=== PATIENT | male | born 1965 | race African-American/Black ===

== ENCOUNTER 2018-03-25 11:42 | Inpatient (IN) ==
[2018-03-25 14:41] LABS: Basophils % 0.3 % (0.0-0.8); Eosinophils # 0.2 10*3/uL (0.0-0.87); Eosinophils % 2.8 % (0.00-10.9); Hematocrit 32.4 VOL% (42.0-52.0); Hemoglobin 9.9 GM/DL (14.0-18.0); Immature Granulocytes % 0.6 %; Immature Granulocytes Absolute 0.04 #; Lymphocytes # 0.8 10*3/uL (1.4-4.0); Lymphocytes % 12.9 % (21.2-54.2); Mean Corpuscular HGB Conc 30.6 GM/DL (32-36); Mean Corpuscular Hemoglobin 32 PG (27-34); Mean Corpuscular Volume 104.9 FL (87-102); Mean Platelet Volume 11.7 FL (9.6-12.0); Monocytes # 0.4 10*3/uL (0.11-0.8); Monocytes % 5.9 % (1.7-12.7); Neutrophils % 77.5 % (38.7-73.9); Platelet Count 198 T/CUMM (130-400); Red Blood Count 3.09 MC/CUMM (3.8-5.5); Red Cell Distribution Width 14.8 % (9.3-17.3); White Blood Count 6.4 T/CUMM (4-12)
[2018-03-25 14:53] LABS: INR 1.2; PT Patient Result 12.7 SECS; Partial Thromboplastin Time 29.9 SECS (0-40)
[2018-03-25 15:04] LABS: CKMB % 5.6 %; Troponin I 0.031 NG/ML (0.00-0.045)
[2018-03-25 15:15] LABS: Albumin 3.3 G/DL (3.4-5.0); Bilirubin,Total 0.4 MG/DL (0.2-1.0); Osmolality,Calculated 334.3 MOS/KG (273-304); Total Protein 6.8 G/DL (6.4-8.3)
[2018-03-25 15:24] LABS: Potassium 5.9 MMOL/L (3.5-5.1)
[2018-03-25] MEDS ORDERED: ACETAMINOPHEN 325 MG TABLET PO PRN (15:49)
[2018-03-25] MEDS ORDERED: ONDANSETRON 4 MG/2 ML VIAL IV PRN (15:49)
[2018-03-25] MEDS ORDERED: traZODone 50 MG TABLET PO PRN (15:49)
[2018-03-25] MEDS ORDERED: SODIUM POLYSTYRENE SULFATE 15 GM/60 ML BOTTLE PO ONE (16:25)
[2018-03-25] MEDS ORDERED: CALCIUM GLUCONATE 1,000 MG in SODIUM CHLORIDE 0.9% 100 ML IV ONE (16:28)
[2018-03-25] MEDS ORDERED: INSULIN REGULAR 100 UNIT/ML IV STA (16:29)
[2018-03-25] MEDS ORDERED: GLUCAGON 1 MG VIAL IM PRN ×2 (16:30→16:33)
[2018-03-25] MEDS ORDERED: DEXTROSE 50% 25 GM/50 ML VIAL IV ONE (16:30)
[2018-03-25] MEDS ORDERED: DEXTROSE 50% 25 GM/50 ML VIAL IV PRN ×2 (16:30→16:33)
[2018-03-25 17:36] LABS: INR 1.2; PT Patient Result 12.6 SECS
[2018-03-25 17:52] LABS: Risk Ratio 2.9; Thyroid Stimulating Hormone 4.44 uIU/ml (0.358-3.74); VLDL CHOLESTEROL 17.4 MG/DL
[2018-03-25] MEDS: INSULIN REGULAR 100 UNIT/ML SUBCUT SCH (18:06)
[2018-03-25] MEDS: WARFARIN 4 MG TABLET PO SCH (18:47)
[2018-03-25] MEDS: CALCIUM ACETATE 667 MG CAPSULE PO SCH (18:47)
[2018-03-25] MEDS: HEPARIN 5,000 UNIT/1 ML VIAL SUBCUT SCH (18:48)
[2018-03-25 19:03] LABS: Hepatitis A Ab IgM Quant 0.15 Index; Hepatitis A Ab IgM Result Negative (Negative); Hepatitis B Core IgM Quant < 0.05 Index; Hepatitis B Core IgM Result Negative (Negative); Hepatitis B Surface Ag Quant 0.11 Index; Hepatitis B Surface Ag Result Negative (Negative); Hepatitis C Virus Ab Quant 0.18 Index; Hepatitis C Virus Ab Result Negative (Negative)
[2018-03-25] MEDS: ALBUTEROL/IPRATROPIUM 3 ML NEB RESP TX SCH (19:40)
[2018-03-25] MEDS: PANTOPRAZOLE 40 MG TABLET PO SCH (20:49)
[2018-03-25] MEDS: CARVEDILOL 6.25 MG TABLET PO SCH (20:49)
[2018-03-25] MEDS ORDERED: CARVEDILOL 3.125 MG TABLET PO SCH (21:00)
[2018-03-26] MEDS: DOCUSATE SODIUM 100 MG CAPSULE PO SCH ×3 (00:52→20:55)
[2018-03-26] MEDS: INSULIN REGULAR 100 UNIT/ML SUBCUT SCH ×5 (00:53→20:55)
[2018-03-26] MEDS: ALBUTEROL/IPRATROPIUM 3 ML NEB RESP TX SCH ×4 (01:21→19:29)
[2018-03-26] MEDS: hydrALAZINE 20 MG/1 ML VIAL IV PRN ×2 (01:33→11:11)
[2018-03-26] MEDS: HEPARIN 5,000 UNIT/1 ML VIAL SUBCUT SCH ×3 (01:33→17:31)
[2018-03-26 03:39] LABS: Basophils % 0.2 % (0.0-0.8); Eosinophils # 0.2 10*3/uL (0.0-0.87); Eosinophils % 2.4 % (0.00-10.9); Hematocrit 31.5 VOL% (42.0-52.0); Hemoglobin 9.9 GM/DL (14.0-18.0); Immature Granulocytes % 0.6 %; Immature Granulocytes Absolute 0.04 #; Lymphocytes # 0.7 10*3/uL (1.4-4.0); Lymphocytes % 10.5 % (21.2-54.2); Mean Corpuscular HGB Conc 31.4 GM/DL (32-36); Mean Corpuscular Hemoglobin 32 PG (27-34); Mean Corpuscular Volume 101.9 FL (87-102); Monocytes # 0.3 10*3/uL (0.11-0.8); Monocytes % 4.8 % (1.7-12.7); Neutrophils % 81.5 % (38.7-73.9); Platelet Count 185 T/CUMM (130-400); Red Blood Count 3.09 MC/CUMM (3.8-5.5); Red Cell Distribution Width 14.5 % (9.3-17.3); White Blood Count 6.2 T/CUMM (4-12)
[2018-03-26 03:47] LABS: INR 1.3; PT Patient Result 13.1 SECS
[2018-03-26 04:04] LABS: Alanine Aminotransferase 14 U/L (16-61); Albumin 3.3 G/DL (3.4-5.0); Alkaline Phosphatase 100 U/L (45-117); Aspartate Amino Transferase 10 U/L (0-37); Bilirubin,Total < 0.39 MG/DL (0.2-1.0); Blood Urea Nitrogen 161 MG/DL (7-18); Glucose 93 MG/DL (74-106); Osmolality,Calculated 335.1 MOS/KG (273-304); Potassium 5.1 MMOL/L (3.5-5.1); Sodium 142 MMOL/L (136-145)
[2018-03-26] MEDS ORDERED: LEVOTHYROXINE 100 MCG TABLET PO SCH (07:00)
[2018-03-26] MEDS: CITALOPRAM 40 MG TABLET PO SCH (08:03)
[2018-03-26] MEDS: PANTOPRAZOLE 40 MG TABLET PO SCH ×2 (08:03→20:55)
[2018-03-26] MEDS: CARVEDILOL 6.25 MG TABLET PO SCH ×2 (08:03→18:37)
[2018-03-26] MEDS: ASPIRIN CHEW 81 MG TABLET PO SCH (08:04)
[2018-03-26] MEDS: FUROSEMIDE 40 MG TABLET PO SCH ×2 (08:04→15:20)
[2018-03-26] MEDS: ATORVASTATIN 20 MG TABLET PO SCH (08:04)
[2018-03-26] MEDS: CALCIUM ACETATE 667 MG CAPSULE PO SCH ×3 (08:04→17:32)
[2018-03-26] MEDS ORDERED: FAMOTIDINE 20 MG TABLET PO SCH (09:00)
[2018-03-26] MEDS ORDERED: PANTOPRAZOLE 40 MG TABLET PO SCH (09:00)
[2018-03-26] MEDS ORDERED: LEVOTHYROXINE 112 MCG TABLET PO SCH (10:59)
[2018-03-26] MEDS: WARFARIN 4 MG TABLET PO SCH (17:32)
[2018-03-27] MEDS: ALBUTEROL/IPRATROPIUM 3 ML NEB RESP TX SCH ×3 (00:07→13:28)
[2018-03-27] MEDS: INSULIN REGULAR 100 UNIT/ML SUBCUT SCH ×2 (07:30→11:24)
[2018-03-27] MEDS: CARVEDILOL 6.25 MG TABLET PO SCH (08:45)
[2018-03-27] MEDS: FUROSEMIDE 40 MG TABLET PO SCH (08:45)
[2018-03-27] MEDS: CALCIUM ACETATE 667 MG CAPSULE PO SCH ×2 (08:45→13:21)
[2018-03-27] MEDS: PANTOPRAZOLE 40 MG TABLET PO SCH (08:46)
[2018-03-27] MEDS: CITALOPRAM 40 MG TABLET PO SCH (08:46)
[2018-03-27] MEDS: DOCUSATE SODIUM 100 MG CAPSULE PO SCH (08:46)
[2018-03-27] MEDS: ASPIRIN CHEW 81 MG TABLET PO SCH (08:46)
[2018-03-27] MEDS: ATORVASTATIN 20 MG TABLET PO SCH (08:53)
[2018-03-27] MEDS ORDERED: NYSTATIN POWDER 15 GM BOTTLE TOP SCH (09:00)
[2018-03-27 14:33] VITALS: BP 121/84
== END 2018-03-27 14:55 | disposition home or self-care (01) | DRG 640 ==
LOC: N.ED 11:42 → N.EDINP 11:42 → SUATTDRO 15:49 → N.CC 16:59 → N.5E 03-26 16:25

== ENCOUNTER 2018-03-31 15:57 | Inpatient (IN) ==
[2018-03-31] MEDS ORDERED: EPINEPHrine 1 MG/10 ML SYRINGE IV ONE ×2 (16:02→16:30)
[2018-03-31] MEDS ORDERED: INSULIN REGULAR 100 UNIT/ML ONE (16:03)
[2018-03-31] MEDS ORDERED: SODIUM BICARBONATE 50 MEQ/50 ML VIAL IV ONE (16:04)
[2018-03-31] MEDS ORDERED: INSULIN REGULAR 100 UNIT/ML IV ONE (16:04)
[2018-03-31 16:27] LABS: ABG Base Excess -19.1 MMOL/L (-2.5-2.5); ABG HCO3 10.5 MMOL/L (20-26); ABG Oxygen Saturation 98.5 % (95-100); ABG PCO2 90.5 MM HG (35-48); ABG TCO2 16.9 MMOL/L (23-27)
[2018-03-31] MEDS ORDERED: NOREPINEPHRINE 4 MG/4 ML VIAL IV ONE ×2 (16:31→16:33)
[2018-03-31 16:36] LABS: Basophils % 0.3 % (0.0-0.8); Eosinophils % 0.3 % (0.00-10.9); Hematocrit 34.1 VOL% (42.0-52.0); Hemoglobin 10.2 GM/DL (14.0-18.0); Immature Granulocytes % 7.3 %; Immature Granulocytes Absolute 0.85 #; Lymphocytes # 1.7 10*3/uL (1.4-4.0); Lymphocytes % 14.2 % (21.2-54.2); Mean Corpuscular HGB Conc 29.9 GM/DL (32-36); Mean Corpuscular Hemoglobin 32 PG (27-34); Mean Corpuscular Volume 108.3 FL (87-102); Mean Platelet Volume 12.3 FL (9.6-12.0); Monocytes # 0.2 10*3/uL (0.11-0.8); Monocytes % 2.1 % (1.7-12.7); NRBC # 0.16 10*3/uL; Neutrophils # 8.8 10*3/uL (1.4-7.4); Neutrophils % 75.8 % (38.7-73.9); Platelet Count 162 T/CUMM (130-400); Red Blood Count 3.15 MC/CUMM (3.8-5.5); Red Cell Distribution Width 15.1 % (9.3-17.3); White Blood Count 11.6 T/CUMM (4-12)
[2018-03-31] MEDS: NOREPINEPHRINE 8 MG in SODIUM CHLORIDE 0.9% 242 ML IV PRN (16:36)
[2018-03-31 16:37] LABS: ABG PH 6.868 (7.35-7.45)
[2018-03-31] MEDS ORDERED: SODIUM BICARBONATE 50 MEQ/50 ML VIAL IV STA (16:37)
[2018-03-31 16:56] LABS: Albumin 3.3 G/DL (3.4-5.0); Bilirubin,Total 0.4 MG/DL (0.2-1.0); Calcium 8.2 MG/DL (8.5-10.1); Osmolality,Calculated 304.8 MOS/KG (273-304); Potassium 3.8 MMOL/L (3.5-5.1); Total Protein 7.1 G/DL (6.4-8.3)
[2018-03-31] MEDS ORDERED: ALBUTEROL 2.5 MG/3 ML NEB RESP TX PRN (17:00)
[2018-03-31 17:45] LABS: Lymphocytes 18 % (20-55); Nucleated Red Blood Cells 4 (0-5); Segmented Neutrophils 77 % (50-85)
[2018-03-31 17:46] LABS: Hypochromasia Slight; Macrocytosis 1+; Platelet Estimate Normal; Total Cells Counted 100
[2018-03-31] MEDS ORDERED: LORazepam 2 MG/1 ML VIAL ONE (17:57)
[2018-03-31] MEDS ORDERED: LORazepam 2 MG/1 ML VIAL IV ONE (17:58)
[2018-03-31] MEDS ORDERED: levETIRAcetam 500 MG/5 ML VIAL IV ONE (18:00)
[2018-03-31 19:15] LABS: INR 4.1
[2018-03-31 19:16] LABS: ABG Base Excess -7.6 MMOL/L (-2.5-2.5); ABG HCO3 18.3 MMOL/L (20-26); ABG Oxygen Saturation 99.7 % (95-100); ABG PCO2 37.6 MM HG (35-48); ABG PH 7.297 (7.35-7.45); ABG TCO2 16.8 MMOL/L (23-27); Allen Test Positive; Pt O2 Delivery Device Ventilator
[2018-03-31 19:17] LABS: PT Patient Result 41.1 SECS; Partial Thromboplastin Time 56.5 SECS (0-40)
[2018-03-31 19:22] LABS: Lactic Acid 10.4 MMOL/L (0.4-2.0)
[2018-03-31 19:28] LABS: Alanine Aminotransferase 73 U/L (16-61); Albumin 3.2 G/DL (3.4-5.0); Alkaline Phosphatase 167 U/L (45-117); Amylase 83 U/L (25-115); Aspartate Amino Transferase 61 U/L (0-37); Blood Urea Nitrogen 90 MG/DL (7-18); CKMB % 5.2 %; Calcium 7.2 MG/DL (8.5-10.1); Glucose 87 MG/DL (74-106); Osmolality,Calculated 309.1 MOS/KG (273-304); Potassium 3.6 MMOL/L (3.5-5.1); Sodium 142 MMOL/L (136-145); Total Protein 6.8 G/DL (6.4-8.3)
[2018-03-31 19:33] LABS: Troponin I 0.122 NG/ML (0.00-0.045)
[2018-03-31] MEDS: MIDAZOLAM 100 MG in SODIUM CHLORIDE 0.9% 80 ML IV PRN (19:45)
[2018-03-31] MEDS: fentaNYL INJ 1,250 MCG in SODIUM CHLORIDE 0.9% 225 ML IV PRN (19:45)
[2018-03-31] MEDS: CISATRACURIUM 200 MG in SODIUM CHLORIDE 0.9% 180 ML IV SCH (19:51)
[2018-03-31] MEDS: PANTOPRAZOLE 40 MG VIAL IV SCH (19:54)
[2018-03-31] MEDS: INSULIN REGULAR 100 UNIT/ML IV SCH (20:37)
[2018-03-31 20:50] LABS: Apearance,Urine CLOUDY (Clear); Bilirubin,Urine Negative (Negative); Blood, Urine Large mg/dL (Negative); Glucose,Urine (UA) Negative (Negative); Ketones,Urine Negative (Negative); Mucus,Urine Occasional /LPF (Occasional); Nitrite,Urine Negative (Negative); Protein,Urine 100 MG/DL; RBC,Urine 273 /HPF (0-4); Squamous Epithelial Cell,Urine Occasional /HPF (0-10); Urine Color Yellow (Yellow); Urine Specific Gravity 1.013 (1.001-1.035); Urine Urobilinogen < 2.0 EU/DL (0.2-1.0); WBC,Urine 166 /HPF (0-6)
[2018-03-31] MEDS: MINERAL OIL/PETROLATUM OPH OINT 3.5 GM TUBE BOTH EYES SCH (22:00)
[2018-04-01] MEDS: INSULIN REGULAR 100 UNIT/ML IV SCH ×6 (01:05→20:50)
[2018-04-01 01:20] LABS: Basophils % 0.2 % (0.0-0.8); Eosinophils % 0.1 % (0.00-10.9); Hematocrit 26.9 VOL% (42.0-52.0); Hemoglobin 9.1 GM/DL (14.0-18.0); Immature Granulocytes % 1.7 %; Lymphocytes # 0.3 10*3/uL (1.4-4.0); Lymphocytes % 2.8 % (21.2-54.2); Mean Corpuscular HGB Conc 33.8 GM/DL (32-36); Mean Corpuscular Hemoglobin 33 PG (27-34); Mean Corpuscular Volume 96.8 FL (87-102); Mean Platelet Volume 11.8 FL (9.6-12.0); Monocytes # 0.5 10*3/uL (0.11-0.8); Monocytes % 4.2 % (1.7-12.7); NRBC # 0.03 10*3/uL; Neutrophils # 10.7 10*3/uL (1.4-7.4); Platelet Count 151 T/CUMM (130-400); Red Blood Count 2.78 MC/CUMM (3.8-5.5); Red Cell Distribution Width 14.6 % (9.3-17.3); White Blood Count 11.7 T/CUMM (4-12)
[2018-04-01 01:32] LABS: Calcium 6.9 MG/DL (8.5-10.1); Potassium 3.4 MMOL/L (3.5-5.1)
[2018-04-01 01:35] LABS: Lactic Acid 4.2 MMOL/L (0.4-2.0)
[2018-04-01 01:39] LABS: Partial Thromboplastin Time 41.7 SECS (0-40)
[2018-04-01 03:40] LABS: Lymphocytes 3 % (20-55); Metamyelocytes 1 %; Platelet Estimate Adequate; Segmented Neutrophils 92 % (50-85); Total Cells Counted 100
[2018-04-01] MEDS: fentaNYL INJ 1,250 MCG in SODIUM CHLORIDE 0.9% 225 ML IV PRN ×3 (04:15→21:28)
[2018-04-01 04:21] LABS: Basophils % 0.2 % (0.0-0.8); Eosinophils % 0.2 % (0.00-10.9); Hematocrit 27.6 VOL% (42.0-52.0); Hemoglobin 9.2 GM/DL (14.0-18.0); Immature Granulocytes % 1.9 %; Immature Granulocytes Absolute 0.24 #; Lymphocytes # 0.4 10*3/uL (1.4-4.0); Lymphocytes % 3.3 % (21.2-54.2); Mean Corpuscular HGB Conc 33.3 GM/DL (32-36); Mean Corpuscular Hemoglobin 32 PG (27-34); Mean Corpuscular Volume 96.8 FL (87-102); Mean Platelet Volume 11.8 FL (9.6-12.0); Monocytes # 0.6 10*3/uL (0.11-0.8); Monocytes % 4.7 % (1.7-12.7); NRBC # 0.02 10*3/uL; Neutrophils # 11.1 10*3/uL (1.4-7.4); Neutrophils % 89.7 % (38.7-73.9); Platelet Count 154 T/CUMM (130-400); Red Blood Count 2.85 MC/CUMM (3.8-5.5); Red Cell Distribution Width 14.6 % (9.3-17.3); White Blood Count 12.3 T/CUMM (4-12)
[2018-04-01 04:22] LABS: ABG Base Excess -2.5 MMOL/L (-2.5-2.5); ABG HCO3 22.3 MMOL/L (20-26); ABG Oxygen Saturation 99.4 % (95-100); ABG PCO2 26.3 MM HG (35-48); ABG PH 7.487 (7.35-7.45); ABG TCO2 18.1 MMOL/L (23-27)
[2018-04-01 04:50] LABS: Albumin 2.9 G/DL (3.4-5.0); Bilirubin,Total 0.7 MG/DL (0.2-1.0); Calcium 6.9 MG/DL (8.5-10.1); Potassium 3.4 MMOL/L (3.5-5.1); Total Protein 5.7 G/DL (6.4-8.3)
[2018-04-01 04:54] LABS: Lymphocytes 4 % (20-55); Nucleated Red Blood Cells 1 (0-5); Segmented Neutrophils 95 % (50-85); Total Cells Counted 100
[2018-04-01 04:55] LABS: Platelet Estimate Decreased; Polychromasia Few
[2018-04-01 07:37] LABS: Basophils % 0.2 % (0.0-0.8); Eosinophils % 0.2 % (0.00-10.9); Hematocrit 27.9 VOL% (42.0-52.0); Hemoglobin 9.3 GM/DL (14.0-18.0); Immature Granulocytes % 1.9 %; Immature Granulocytes Absolute 0.24 #; Lymphocytes # 0.4 10*3/uL (1.4-4.0); Lymphocytes % 2.9 % (21.2-54.2); Mean Corpuscular HGB Conc 33.3 GM/DL (32-36); Mean Corpuscular Hemoglobin 32 PG (27-34); Mean Corpuscular Volume 97.2 FL (87-102); Mean Platelet Volume 11.5 FL (9.6-12.0); Monocytes # 0.7 10*3/uL (0.11-0.8); Monocytes % 5.3 % (1.7-12.7); NRBC # 0.03 10*3/uL; Neutrophils # 11.6 10*3/uL (1.4-7.4); Neutrophils % 89.5 % (38.7-73.9); Platelet Count 156 T/CUMM (130-400); Red Blood Count 2.87 MC/CUMM (3.8-5.5); Red Cell Distribution Width 14.6 % (9.3-17.3); White Blood Count 12.9 T/CUMM (4-12)
[2018-04-01 07:46] LABS: INR 4.3
[2018-04-01 07:47] LABS: PT Patient Result 43.3 SECS; Partial Thromboplastin Time 42.7 SECS (0-40)
[2018-04-01 08:08] LABS: Band Neutrophils 1 % (0-10); Hypochromasia 1+; Lymphocytes 1 % (20-55); Segmented Neutrophils 95 % (50-85); Total Cells Counted 100
[2018-04-01 08:09] LABS: Macrocytosis Slight; Platelet Estimate Adequate
[2018-04-01 08:12] LABS: CKMB % 3.7 %; Calcium 6.9 MG/DL (8.5-10.1); Osmolality,Calculated 312.1 MOS/KG (273-304); Potassium 3.4 MMOL/L (3.5-5.1)
[2018-04-01 08:14] LABS: Troponin I 1.87 NG/ML (0.00-0.045)
[2018-04-01] MEDS: cefTRIAXone 1,000 MG in SYRINGE 1 EACH IV SCH (08:41)
[2018-04-01] MEDS: CLINDAMYCIN INJ 300 MG in PREMIX 1 EACH IV SCH ×2 (08:41→16:26)
[2018-04-01] MEDS: DEXTROSE 50% 25 GM/50 ML VIAL IV PRN (08:41)
[2018-04-01] MEDS: NYSTATIN POWDER 15 GM BOTTLE TOP SCH ×3 (08:54→21:55)
[2018-04-01] MEDS: CISATRACURIUM 200 MG in SODIUM CHLORIDE 0.9% 180 ML IV SCH ×2 (09:14→20:51)
[2018-04-01] MEDS: MIDAZOLAM 100 MG in SODIUM CHLORIDE 0.9% 80 ML IV PRN ×2 (09:24→20:50)
[2018-04-01 13:58] LABS: Basophils % 0.1 % (0.0-0.8); Eosinophils % 0.3 % (0.00-10.9); Hematocrit 29.4 VOL% (42.0-52.0); Hemoglobin 9.7 GM/DL (14.0-18.0); Immature Granulocytes % 1.4 %; Immature Granulocytes Absolute 0.21 #; Lymphocytes # 0.6 10*3/uL (1.4-4.0); Lymphocytes % 3.8 % (21.2-54.2); Mean Corpuscular Hemoglobin 32 PG (27-34); Mean Corpuscular Volume 97.4 FL (87-102); Mean Platelet Volume 11.7 FL (9.6-12.0); Monocytes # 0.7 10*3/uL (0.11-0.8); Monocytes % 4.7 % (1.7-12.7); NRBC # 0.03 10*3/uL; Neutrophils # 13.6 10*3/uL (1.4-7.4); Neutrophils % 89.7 % (38.7-73.9); Platelet Count 161 T/CUMM (130-400); Red Blood Count 3.02 MC/CUMM (3.8-5.5); Red Cell Distribution Width 14.8 % (9.3-17.3); White Blood Count 15.2 T/CUMM (4-12)
[2018-04-01 14:17] LABS: Lactic Acid 1.5 MMOL/L (0.4-2.0)
[2018-04-01 14:18] LABS: PT Patient Result 50.2 SECS; Partial Thromboplastin Time 45.8 SECS (0-40)
[2018-04-01 14:22] LABS: CKMB % 3.9 %; Calcium 6.7 MG/DL (8.5-10.1); Osmolality,Calculated 310.4 MOS/KG (273-304); Potassium 3.9 MMOL/L (3.5-5.1)
[2018-04-01 14:32] LABS: Troponin I 1.76 NG/ML (0.00-0.045)
[2018-04-01] MEDS: ALBUTEROL/IPRATROPIUM 3 ML NEB RESP TX SCH ×2 (16:20→20:15)
[2018-04-01] MEDS: PANTOPRAZOLE 40 MG VIAL IV SCH (17:31)
[2018-04-01 18:36] LABS: Eosinophils 1 % (0-10); Lymphocytes 1 % (20-55); Platelet Estimate Normal; Segmented Neutrophils 94 % (50-85); Total Cells Counted 100
[2018-04-01 19:33] LABS: Basophils % 0.1 % (0.0-0.8); Eosinophils % 0.3 % (0.00-10.9); Hematocrit 29.7 VOL% (42.0-52.0); Hemoglobin 9.7 GM/DL (14.0-18.0); Immature Granulocytes Absolute 0.14 #; Lymphocytes # 0.5 10*3/uL (1.4-4.0); Lymphocytes % 3.8 % (21.2-54.2); Mean Corpuscular HGB Conc 32.7 GM/DL (32-36); Mean Corpuscular Hemoglobin 32 PG (27-34); Mean Corpuscular Volume 98.3 FL (87-102); Mean Platelet Volume 11.9 FL (9.6-12.0); Monocytes # 0.6 10*3/uL (0.11-0.8); Monocytes % 4.5 % (1.7-12.7); NRBC # 0.04 10*3/uL; Neutrophils # 12.5 10*3/uL (1.4-7.4); Neutrophils % 90.3 % (38.7-73.9); Platelet Count 153 T/CUMM (130-400); Red Blood Count 3.02 MC/CUMM (3.8-5.5); Red Cell Distribution Width 14.8 % (9.3-17.3); White Blood Count 13.9 T/CUMM (4-12)
[2018-04-01 19:46] LABS: Lactic Acid 1.4 MMOL/L (0.4-2.0)
[2018-04-01 19:59] LABS: CKMB % 4.2 %; Calcium 6.6 MG/DL (8.5-10.1); Osmolality,Calculated 314.1 MOS/KG (273-304)
[2018-04-01 20:00] LABS: Troponin I 1.5 NG/ML (0.00-0.045)
[2018-04-01 20:33] LABS: PT Patient Result 58.7 SECS; Partial Thromboplastin Time 48.1 SECS (0-40)
[2018-04-01 20:34] LABS: INR 5.9
[2018-04-01 21:47] LABS: Band Neutrophils 1 % (0-10); Lymphocytes 3 % (20-55); Platelet Estimate Normal; Segmented Neutrophils 96 % (50-85); Total Cells Counted 100
[2018-04-01] MEDS: MINERAL OIL/PETROLATUM OPH OINT 3.5 GM TUBE BOTH EYES SCH (21:55)
[2018-04-02] MEDS: CLINDAMYCIN INJ 300 MG in PREMIX 1 EACH IV SCH ×4 (00:20→23:29)
[2018-04-02] MEDS: INSULIN REGULAR 100 UNIT/ML IV SCH ×2 (00:25→04:06)
[2018-04-02] MEDS: ALBUTEROL/IPRATROPIUM 3 ML NEB RESP TX SCH ×4 (01:03→19:05)
[2018-04-02 01:30] LABS: Basophils % 0.2 % (0.0-0.8); Eosinophils # 0.1 10*3/uL (0.0-0.87); Eosinophils % 1.2 % (0.00-10.9); Hematocrit 28.2 VOL% (42.0-52.0); Immature Granulocytes % 1.7 %; Lymphocytes # 0.6 10*3/uL (1.4-4.0); Mean Corpuscular HGB Conc 31.9 GM/DL (32-36); Mean Corpuscular Hemoglobin 31 PG (27-34); Mean Corpuscular Volume 98.3 FL (87-102); Monocytes # 0.6 10*3/uL (0.11-0.8); Monocytes % 5.3 % (1.7-12.7); NRBC # 0.07 10*3/uL; Neutrophils # 10.3 10*3/uL (1.4-7.4); Neutrophils % 86.6 % (38.7-73.9); Platelet Count 160 T/CUMM (130-400); Red Blood Count 2.87 MC/CUMM (3.8-5.5); Red Cell Distribution Width 14.8 % (9.3-17.3); White Blood Count 11.9 T/CUMM (4-12)
[2018-04-02 01:36] LABS: Calcium 6.2 MG/DL (8.5-10.1); Osmolality,Calculated 313.1 MOS/KG (273-304); Potassium 3.9 MMOL/L (3.5-5.1)
[2018-04-02 01:38] LABS: PT Patient Result 70.8 SECS; Partial Thromboplastin Time 49.7 SECS (0-40)
[2018-04-02 01:39] LABS: INR 7.2
[2018-04-02] MEDS ORDERED: PHYTONADIONE 10 MG/1 ML AMP SUBCUT ONE (02:00)
[2018-04-02] MEDS: NOREPINEPHRINE 8 MG in SODIUM CHLORIDE 0.9% 242 ML IV PRN ×3 (04:06→20:24)
[2018-04-02 04:31] LABS: ABG Base Excess -2.7 MMOL/L (-2.5-2.5); ABG HCO3 22.1 MMOL/L (20-26); ABG Oxygen Saturation 96.2 % (95-100); ABG PCO2 40.5 MM HG (35-48); ABG PH 7.354 (7.35-7.45); ABG PO2 96.4 MM HG (80-95); ABG TCO2 20.8 MMOL/L (23-27)
[2018-04-02] MEDS: fentaNYL INJ 1,250 MCG in SODIUM CHLORIDE 0.9% 225 ML IV PRN (05:50)
[2018-04-02] MEDS: CISATRACURIUM 200 MG in SODIUM CHLORIDE 0.9% 180 ML IV SCH (05:50)
[2018-04-02 06:57] LABS: ABG Base Excess -2.5 MMOL/L (-2.5-2.5); ABG HCO3 22.3 MMOL/L (20-26); ABG Oxygen Saturation 97.7 % (95-100); ABG PCO2 40.6 MM HG (35-48); ABG PH 7.357 (7.35-7.45)
[2018-04-02] MEDS ORDERED: ACETAMINOPHEN 325 MG/10.15 ML UDCUP PO PRN (06:58)
[2018-04-02] MEDS: MIDAZOLAM 100 MG in SODIUM CHLORIDE 0.9% 80 ML IV PRN (07:00)
[2018-04-02 07:01] LABS: Basophils % 0.2 % (0.0-0.8); Eosinophils # 0.1 10*3/uL (0.0-0.87); Eosinophils % 0.9 % (0.00-10.9); Hematocrit 27.8 VOL% (42.0-52.0); Hemoglobin 9.3 GM/DL (14.0-18.0); Immature Granulocytes % 1.2 %; Immature Granulocytes Absolute 0.16 #; Lymphocytes # 0.6 10*3/uL (1.4-4.0); Lymphocytes % 4.5 % (21.2-54.2); Mean Corpuscular HGB Conc 33.5 GM/DL (32-36); Mean Corpuscular Hemoglobin 33 PG (27-34); Mean Corpuscular Volume 97.9 FL (87-102); Mean Platelet Volume 11.4 FL (9.6-12.0); Monocytes # 0.7 10*3/uL (0.11-0.8); Monocytes % 5.1 % (1.7-12.7); NRBC # 0.11 10*3/uL; Neutrophils # 11.5 10*3/uL (1.4-7.4); Neutrophils % 88.1 % (38.7-73.9); Platelet Count 165 T/CUMM (130-400); Red Blood Count 2.84 MC/CUMM (3.8-5.5); Red Cell Distribution Width 15.1 % (9.3-17.3)
[2018-04-02] MEDS: cefTRIAXone 1,000 MG in SYRINGE 1 EACH IV SCH (07:05)
[2018-04-02 07:37] LABS: Band Neutrophils 3 % (0-10); Eosinophils 1 % (0-10); Lymphocytes 3 % (20-55); Segmented Neutrophils 90 % (50-85); Total Cells Counted 100
[2018-04-02 07:38] LABS: Hypochromasia 1+
[2018-04-02 07:39] LABS: Macrocytosis Slight
[2018-04-02 07:41] LABS: Platelet Estimate Adequate
[2018-04-02 07:52] LABS: Albumin 2.7 G/DL (3.4-5.0); Bilirubin,Total 0.4 MG/DL (0.2-1.0); Calcium 6.4 MG/DL (8.5-10.1); Osmolality,Calculated 314.1 MOS/KG (273-304); Potassium 4.1 MMOL/L (3.5-5.1)
[2018-04-02 07:53] LABS: Troponin I 1.1 NG/ML (0.00-0.045)
[2018-04-02] MEDS: INSULIN REGULAR 100 UNIT/ML SUBCUT SCH ×5 (07:57→23:33)
[2018-04-02 08:17] LABS: PT Patient Result 74.2 SECS
[2018-04-02 08:19] LABS: INR 7.6; Partial Thromboplastin Time 50.3 SECS (0-40)
[2018-04-02] MEDS: NYSTATIN POWDER 15 GM BOTTLE TOP SCH ×3 (09:44→20:44)
[2018-04-02] MEDS ORDERED: INSULIN REGULAR 100 UNIT/ML SUBCUT SCH (10:00)
[2018-04-02] MEDS ORDERED: CALCIUM GLUCONATE 1,000 MG in SODIUM CHLORIDE 0.9% 100 ML IV ONE (10:48)
[2018-04-02] MEDS ORDERED: CALCIUM GLUCONATE 1,000 MG/10 ML VIAL IV ONE (10:51)
[2018-04-02] MEDS: DEXTROSE 50% 25 GM/50 ML VIAL IV PRN (16:44)
[2018-04-02] MEDS: PANTOPRAZOLE 40 MG VIAL IV SCH (18:24)
[2018-04-02] MEDS: MINERAL OIL/PETROLATUM OPH OINT 3.5 GM TUBE BOTH EYES SCH (20:44)
[2018-04-02] MEDS: SKIN HEALING OINT (AQUAPHOR) 50 GM TUBE TOP SCH (20:45)
[2018-04-03] MEDS: ALBUTEROL/IPRATROPIUM 3 ML NEB RESP TX SCH ×4 (01:19→19:02)
[2018-04-03] MEDS: NOREPINEPHRINE 8 MG in SODIUM CHLORIDE 0.9% 242 ML IV PRN ×5 (02:33→21:47)
[2018-04-03 03:45] LABS: ABG Base Excess -1.5 MMOL/L (-2.5-2.5); ABG HCO3 23.1 MMOL/L (20-26); ABG Oxygen Saturation 96.7 % (95-100); ABG PCO2 47.2 MM HG (35-48); ABG PH 7.328 (7.35-7.45); ABG TCO2 22.6 MMOL/L (23-27)
[2018-04-03 03:52] LABS: Basophils % 0.2 % (0.0-0.8); Eosinophils # 0.3 10*3/uL (0.0-0.87); Eosinophils % 1.4 % (0.00-10.9); Hematocrit 31.2 VOL% (42.0-52.0); Immature Granulocytes % 1.9 %; Immature Granulocytes Absolute 0.37 #; Lymphocytes # 1.3 10*3/uL (1.4-4.0); Lymphocytes % 6.5 % (21.2-54.2); Mean Corpuscular HGB Conc 32.1 GM/DL (32-36); Mean Corpuscular Hemoglobin 33 PG (27-34); Mean Corpuscular Volume 101.3 FL (87-102); Mean Platelet Volume 11.3 FL (9.6-12.0); Monocytes # 1.6 10*3/uL (0.11-0.8); Monocytes % 8.3 % (1.7-12.7); NRBC # 0.11 10*3/uL; Neutrophils # 15.8 10*3/uL (1.4-7.4); Neutrophils % 81.7 % (38.7-73.9); Platelet Count 135 T/CUMM (130-400); Red Blood Count 3.08 MC/CUMM (3.8-5.5); Red Cell Distribution Width 15.5 % (9.3-17.3); White Blood Count 19.4 T/CUMM (4-12)
[2018-04-03 04:08] LABS: INR 2.2
[2018-04-03 04:11] LABS: PT Patient Result 22.3 SECS; Partial Thromboplastin Time 44.9 SECS (0-40)
[2018-04-03] MEDS: INSULIN REGULAR 100 UNIT/ML SUBCUT SCH ×6 (04:18→23:20)
[2018-04-03 04:21] LABS: Albumin 2.6 G/DL (3.4-5.0); Bilirubin,Total 0.5 MG/DL (0.2-1.0); Calcium 6.8 MG/DL (8.5-10.1); Osmolality,Calculated 298.4 MOS/KG (273-304); Potassium 4.3 MMOL/L (3.5-5.1); Total Protein 6.1 G/DL (6.4-8.3)
[2018-04-03 04:22] LABS: Troponin I 0.863 NG/ML (0.00-0.045)
[2018-04-03] MEDS: cefTRIAXone 1,000 MG in SYRINGE 1 EACH IV SCH (06:46)
[2018-04-03] MEDS: CLINDAMYCIN INJ 300 MG in PREMIX 1 EACH IV SCH ×3 (07:38→23:23)
[2018-04-03] MEDS: NYSTATIN POWDER 15 GM BOTTLE TOP SCH ×3 (09:16→20:46)
[2018-04-03] MEDS: SKIN HEALING OINT (AQUAPHOR) 50 GM TUBE TOP SCH ×2 (09:16→20:46)
[2018-04-03] MEDS: PANTOPRAZOLE 40 MG VIAL IV SCH (16:57)
[2018-04-03] MEDS: MINERAL OIL/PETROLATUM OPH OINT 3.5 GM TUBE BOTH EYES SCH (20:46)
[2018-04-04] MEDS: ALBUTEROL/IPRATROPIUM 3 ML NEB RESP TX SCH ×4 (00:18→19:13)
[2018-04-04] MEDS: INSULIN REGULAR 100 UNIT/ML SUBCUT SCH ×6 (03:28→23:13)
[2018-04-04] MEDS: NOREPINEPHRINE 8 MG in SODIUM CHLORIDE 0.9% 242 ML IV PRN ×4 (03:38→22:48)
[2018-04-04 04:28] LABS: ABG Base Excess -3.3 MMOL/L (-2.5-2.5); ABG HCO3 21.7 MMOL/L (20-26); ABG Oxygen Saturation 98.1 % (95-100); ABG PH 7.342 (7.35-7.45); ABG TCO2 20.4 MMOL/L (23-27)
[2018-04-04 04:43] LABS: Basophils % 0.2 % (0.0-0.8); Eosinophils # 0.4 10*3/uL (0.0-0.87); Eosinophils % 2.4 % (0.00-10.9); Hematocrit 29.5 VOL% (42.0-52.0); Hemoglobin 9.3 GM/DL (14.0-18.0); Immature Granulocytes % 1.9 %; Immature Granulocytes Absolute 0.31 #; Lymphocytes # 0.9 10*3/uL (1.4-4.0); Lymphocytes % 5.4 % (21.2-54.2); Mean Corpuscular HGB Conc 31.5 GM/DL (32-36); Mean Corpuscular Hemoglobin 32 PG (27-34); Mean Corpuscular Volume 101.4 FL (87-102); Mean Platelet Volume 11.4 FL (9.6-12.0); Monocytes # 1.3 10*3/uL (0.11-0.8); NRBC # 0.04 10*3/uL; Neutrophils # 13.3 10*3/uL (1.4-7.4); Neutrophils % 82.1 % (38.7-73.9); Platelet Count 111 T/CUMM (130-400); Red Blood Count 2.91 MC/CUMM (3.8-5.5); Red Cell Distribution Width 15.7 % (9.3-17.3); White Blood Count 16.2 T/CUMM (4-12)
[2018-04-04 04:50] LABS: INR 1.7; PT Patient Result 17.4 SECS
[2018-04-04 04:59] LABS: Partial Thromboplastin Time 45.2 SECS (0-40)
[2018-04-04 05:44] LABS: Albumin 2.3 G/DL (3.4-5.0); Bilirubin,Total 0.9 MG/DL (0.2-1.0); CKMB % 0.9 %; Calcium 7.3 MG/DL (8.5-10.1); Osmolality,Calculated 304.3 MOS/KG (273-304); Potassium 4.5 MMOL/L (3.5-5.1); Total Protein 5.8 G/DL (6.4-8.3)
[2018-04-04 05:45] LABS: Troponin I 0.809 NG/ML (0.00-0.045)
[2018-04-04 05:49] LABS: Band Neutrophils 2 % (0-10); Eosinophils 3 % (0-10); Lymphocytes 5 % (20-55); Nucleated Red Blood Cells 1 (0-5); Segmented Neutrophils 82 % (50-85)
[2018-04-04 05:50] LABS: Atypical Lymphocytes 1+; Platelet Estimate Decreased
[2018-04-04 05:52] LABS: Hypochromasia Slight; Total Cells Counted 100
[2018-04-04] MEDS: cefTRIAXone 1,000 MG in SYRINGE 1 EACH IV SCH (06:45)
[2018-04-04] MEDS: SKIN HEALING OINT (AQUAPHOR) 50 GM TUBE TOP SCH ×2 (08:21→20:27)
[2018-04-04] MEDS: NYSTATIN POWDER 15 GM BOTTLE TOP SCH ×3 (08:22→20:27)
[2018-04-04] MEDS ORDERED: MAGNESIUM SULF RIDER 2 GM in PREMIX 1 EACH IV ONE (12:54)
[2018-04-04] MEDS ORDERED: MAGNESIUM CHLORIDE 64 MG TABLET PO SCH (13:00)
[2018-04-04] MEDS ORDERED: INFLUENZA VIRUS VACCINE 0.5 ML SYRINGE IM ONE (15:01)
[2018-04-04] MEDS: PANTOPRAZOLE 40 MG VIAL IV SCH (17:06)
[2018-04-04] MEDS: MINERAL OIL/PETROLATUM OPH OINT 3.5 GM TUBE BOTH EYES SCH (20:27)
[2018-04-04] MEDS ORDERED: MAGNESIUM SULF RIDER 2 GM in PREMIX 1 EACH IV PRN (21:51)
[2018-04-05] MEDS: ALBUTEROL/IPRATROPIUM 3 ML NEB RESP TX SCH ×4 (00:08→18:56)
[2018-04-05] MEDS: NOREPINEPHRINE 8 MG in SODIUM CHLORIDE 0.9% 242 ML IV PRN ×5 (03:16→19:07)
[2018-04-05] MEDS: DEXTROSE 50% 25 GM/50 ML VIAL IV PRN ×2 (04:39→20:21)
[2018-04-05] MEDS: INSULIN REGULAR 100 UNIT/ML SUBCUT SCH ×6 (04:41→23:54)
[2018-04-05 04:54] LABS: ABG Base Excess -5.1 MMOL/L (-2.5-2.5); ABG HCO3 20.2 MMOL/L (20-26); ABG Oxygen Saturation 97.3 % (95-100); ABG PH 7.274 (7.35-7.45); ABG TCO2 20.1 MMOL/L (23-27)
[2018-04-05 05:03] LABS: Basophils # 0.1 10*3/uL (0.0-0.2); Basophils % 0.3 % (0.0-0.8); Eosinophils # 0.4 10*3/uL (0.0-0.87); Eosinophils % 2.2 % (0.00-10.9); Hematocrit 31.3 VOL% (42.0-52.0); Hemoglobin 9.8 GM/DL (14.0-18.0); Immature Granulocytes Absolute 0.18 #; Lymphocytes # 1.2 10*3/uL (1.4-4.0); Lymphocytes % 6.6 % (21.2-54.2); Mean Corpuscular HGB Conc 31.3 GM/DL (32-36); Mean Corpuscular Hemoglobin 32 PG (27-34); Mean Corpuscular Volume 102.6 FL (87-102); Mean Platelet Volume 11.5 FL (9.6-12.0); Monocytes # 0.9 10*3/uL (0.11-0.8); Monocytes % 4.9 % (1.7-12.7); NRBC # 0.08 10*3/uL; Neutrophils # 15.8 10*3/uL (1.4-7.4); Platelet Count 111 T/CUMM (130-400); Red Blood Count 3.05 MC/CUMM (3.8-5.5); Red Cell Distribution Width 15.7 % (9.3-17.3); White Blood Count 18.6 T/CUMM (4-12)
[2018-04-05 05:22] LABS: INR 1.4; PT Patient Result 14.9 SECS
[2018-04-05 05:37] LABS: Albumin 2.1 G/DL (3.4-5.0); Bilirubin,Total 0.5 MG/DL (0.2-1.0); CKMB % 0.9 %; Calcium 7.3 MG/DL (8.5-10.1); Osmolality,Calculated 305.3 MOS/KG (273-304); Potassium 5.1 MMOL/L (3.5-5.1)
[2018-04-05 05:38] LABS: Hypochromasia 1+; Platelet Estimate Decreased
[2018-04-05 05:39] LABS: Troponin I 0.526 NG/ML (0.00-0.045)
[2018-04-05 05:40] LABS: Partial Thromboplastin Time 43.2 SECS (0-40)
[2018-04-05] MEDS: cefTRIAXone 1,000 MG in SYRINGE 1 EACH IV SCH (08:49)
[2018-04-05] MEDS: SKIN HEALING OINT (AQUAPHOR) 50 GM TUBE TOP SCH ×2 (08:51→20:27)
[2018-04-05] MEDS: NYSTATIN POWDER 15 GM BOTTLE TOP SCH (08:51)
[2018-04-05] MEDS: NOREPINEPHRINE 16 MG in SODIUM CHLORIDE 0.9% 234 ML IV PRN ×3 (16:50→23:12)
[2018-04-05] MEDS: PANTOPRAZOLE 40 MG VIAL IV SCH (18:36)
[2018-04-05] MEDS: MINERAL OIL/PETROLATUM OPH OINT 3.5 GM TUBE BOTH EYES SCH (20:27)
[2018-04-06] MEDS: PHENYLEPHRINE DRIP 40 MG/250 ML PREMIX IV PRN ×3 (00:10→13:30)
[2018-04-06] MEDS: ALBUTEROL/IPRATROPIUM 3 ML NEB RESP TX SCH ×3 (00:55→13:00)
[2018-04-06] MEDS: INSULIN REGULAR 100 UNIT/ML SUBCUT SCH ×3 (04:00→12:18)
[2018-04-06] MEDS: DEXTROSE 50% 25 GM/50 ML VIAL IV PRN ×3 (04:30→15:55)
[2018-04-06] MEDS: NOREPINEPHRINE 16 MG in SODIUM CHLORIDE 0.9% 234 ML IV PRN ×2 (05:50→13:45)
[2018-04-06] MEDS: cefTRIAXone 1,000 MG in SYRINGE 1 EACH IV SCH (09:37)
[2018-04-06] MEDS: SKIN HEALING OINT (AQUAPHOR) 50 GM TUBE TOP SCH (09:40)
[2018-04-06 17:47] VITALS: BP 31/21
== END 2018-04-06 17:11 | disposition expired | DRG 296 ==
LOC: N.ED 15:57 → SUATTDRO 17:00 → N.EDINP 17:00 → N.ICU 17:36
PROVIDERS: ADMIT Internal Medicine; ATTEND Internal Medicine Geriatric Medicine